=== PATIENT | female | born 1955 | race Caucasian/White ===

== ENCOUNTER 2018-08-01 22:00 | Inpatient (IN) | payer MEDICAID ==
[~2018-08-01] VITALS: Ht 165.1 cm; Wt 81.1 kg
[2018-08-01] MEDS ORDERED: SODIUM CHLORIDE FLUSH 10ML SYR IVF ONE (22:30)
[2018-08-01 22:48] LABS: BASOPHILS # (AUTO) 0.03 x10^3/uL (0-0.1); BASOPHILS % (AUTO) 0 % (0-1); EOSINOPHILS # (AUTO) 0.12 x10^3/uL (0-0.4); EOSINOPHILS % (AUTO) 2 % (1-7); LYMPHOCYTES % (AUTO) 30 % (22-44); MD NO; MEAN CORPUSCULAR HEMOGLOBIN 33.6 pg (27.5-34.5); MEAN CORPUSCULAR HGB CONC 34.3 g/dL (33.2-36.2); MEAN CORPUSCULAR VOLUME 97.9 fL (81-97); MEAN PLATELET VOLUME 7.2 fL (7.4-10.4); MONOCYTES # (AUTO) 0.66 x10^3/uL (0.2-0.8); MONOCYTES % (AUTO) 8 % (2-9); NEUTROPHILS # (AUTO) 4.68 x10^3/uL (1.8-6.8); NEUTROPHILS % (AUTO) 59 % (42-75); PLATELET COUNT 229 x10^3/uL (130-400); RED BLOOD COUNT 3.97 x10^6/uL (4.38-5.82); RED CELL DISTRIBUTION WIDTH 12.2 % (9.4-14.8)
[2018-08-01 23:05] LABS: ALBUMIN 3.6 g/dL (3.4-5.0); ANION GAP 7 mmol/L (5-15); CALCIUM 8.7 mg/dL (8.5-10.1); CHLORIDE 102 mmol/L (98-107)
[2018-08-01 23:10] LABS: ALANINE AMINOTRANSFERASE 42 U/L (12-78); ALKALINE PHOSPHATASE 68 U/L (45-117); BILIRUBIN,TOTAL 0.4 mg/dL (0.2-1.0); CREATININE 0.69 mg/dL (0.7-1.3); TOTAL PROTEIN 7.2 g/dL (6.4-8.2); TROPONIN I < 0.015 ng/mL (0.000-0.045)
[2018-08-01] MEDS ORDERED: POTASSIUM CHLORIDE 20 MEQ TAB.ER.PRT ONE (23:20)
[2018-08-01] MEDS ORDERED: POTASSIUM CHLORIDE 20 MEQ TAB.ER.PRT PO ONE (23:30)
[2018-08-02] MEDS ORDERED: POLYETHYLENE GLYCOL 17 GM PACKET PO PRN
[2018-08-02] MEDS ORDERED: DOCUSATE 100 MG CAPSULE PO PRN
[2018-08-02] MEDS ORDERED: LABETALOL 5MG/ML, 20ML IVPush PRN
[2018-08-02] MEDS ORDERED: POTASSIUM CHLORIDE 40 MEQ in SODIUM CHLORIDE 0.9% 500 ML IV ONE
[2018-08-02] MEDS ORDERED: ONDANSETRON 2MG/ML, 2ML IVPush PRN
[2018-08-02] MEDS ORDERED: morphine SULFATE 10 MG/ML, 1ML IVPush PRN
[2018-08-02] MEDS ORDERED: SODIUM CHLORIDE FLUSH 10ML SYR IVF ONE
[2018-08-02] MEDS ORDERED: SODIUM CHLORIDE 0.9% 1,000ML IVBOLUS ONE
[2018-08-02] MEDS ORDERED: BISACODYL 10 MG SUPP PR PRN
[2018-08-02] MEDS ORDERED: LORazepam 2 MG/ML, 1ML IVPush PRN (00:30)
[2018-08-02 01:03] VITALS: BP 90/58
[2018-08-02] MEDS ORDERED: POTA25TA4 PO (01:36)
[2018-08-02] MEDS ORDERED: FLUO90CA5 PO (01:36)
[2018-08-02] MEDS ORDERED: CHLO50TA PO (01:36)
[2018-08-02] MEDS ORDERED: ATEN50TA41 PO (01:36)
[2018-08-02] MEDS ORDERED: ZOLP6.252 PO (01:36)
[2018-08-02] MEDS: POTASSIUM CHLORIDE 20 MEQ, MAGNESIUM SULFATE 2 GM, THIAMINE 100 MG, MVI ADULT 10 ML, FO... IV SCH ×2 (01:59→18:43)
[2018-08-02 02:00] VITALS: BP 98/60
[2018-08-02] MEDS: POTASSIUM CHLORIDE 20 MEQ in LACTATED RINGERS 1,000 ML IV SCH ×2 (02:00→12:03)
[2018-08-02] MEDS: ENOXAPARIN 40 MG/0.4 ML SQ SCH (05:32)
[2018-08-02 06:20] LABS: TROPONIN I < 0.015 ng/mL (0.000-0.045)
[2018-08-02 08:00] VITALS: BP 106/71
[2018-08-02 08:05] LABS: BASOPHILS # (AUTO) 0.02 x10^3/uL (0-0.1); BASOPHILS % (AUTO) 0 % (0-1); EOSINOPHILS # (AUTO) 0.06 x10^3/uL (0-0.4); EOSINOPHILS % (AUTO) 1 % (1-7); LYMPHOCYTES # (AUTO) 2.32 x10^3/uL (1-3.4); LYMPHOCYTES % (AUTO) 39 % (22-44); MD NO; MEAN CORPUSCULAR HEMOGLOBIN 33.5 pg (27.0-34.8); MEAN CORPUSCULAR HGB CONC 34.7 g/dL (32.4-35.8); MEAN CORPUSCULAR VOLUME 96.5 fL (80-100); MEAN PLATELET VOLUME 7.4 fL (7.4-10.4); MONOCYTES # (AUTO) 0.48 x10^3/uL (0.2-0.8); MONOCYTES % (AUTO) 8 % (2-9); NEUTROPHILS # (AUTO) 3.13 x10^3/uL (1.8-6.8); NEUTROPHILS % (AUTO) 52 % (42-75); PLATELET COUNT 247 x10^3/uL (130-400); RED BLOOD COUNT 4.01 x10^6/uL (3.82-5.3); RED CELL DISTRIBUTION WIDTH 12.1 % (9.6-15.2)
[2018-08-02 08:07] LABS: ALBUMIN 3.5 g/dL (3.4-5.0); ANION GAP 8 mmol/L (5-15); CHLORIDE 104 mmol/L (98-107); CHOLESTEROL, TOTAL 206 mg/dL (140-239)
[2018-08-02 08:14] LABS: ALANINE AMINOTRANSFERASE 40 U/L (12-78); ALKALINE PHOSPHATASE 64 U/L (45-117); BILIRUBIN,TOTAL 0.3 mg/dL (0.2-1.0); CHOL/HDL RATIO 3.4; CREATININE 0.69 mg/dL (0.55-1.02); HDL CHOL % 29 % (28-40); HDL CHOLESTEROL (DIRECT) 60 mg/dL (40-60); LDL CHOLESTEROL,CALCULATED 121 mg/dL (54-169); TOTAL PROTEIN 7.3 g/dL (6.4-8.2); TRIGLYCERIDES 125 mg/dL (50-200); VLDL CHOLESTEROL 25 mg/dL (0-25)
[2018-08-02 11:31] LABS: TROPONIN I < 0.015 ng/mL (0.000-0.045)
[2018-08-02] MEDS: KETOROLAC 30 MG/1 ML IVPush PRN ×2 (12:02→18:42)
[2018-08-02 14:45] VITALS: BP 120/73
[2018-08-02] MEDS ORDERED: OMEP20CA14 PO (17:42)
[2018-08-02 19:29] VITALS: BP 115/58
[2018-08-02] MEDS: ZOLPIDEM 5MG TABLET PO PRN (22:04)
[2018-08-03 01:31] VITALS: BP 111/71
[2018-08-03] MEDS: POTASSIUM CHLORIDE 20 MEQ in LACTATED RINGERS 1,000 ML IV SCH ×2 (05:35→12:18)
[2018-08-03] MEDS: ENOXAPARIN 40 MG/0.4 ML SQ SCH (05:35)
[2018-08-03 06:20] LABS: CHLORIDE 108 mmol/L (98-107)
[2018-08-03 06:28] LABS: ANION GAP 10 mmol/L (5-15); CALCIUM 8.4 mg/dL (8.5-10.1); CREATININE 0.75 mg/dL (0.55-1.02)
[2018-08-03 07:47] VITALS: BP 116/74
[2018-08-03] MEDS ORDERED: CHLORTHALIDONE 25 MG TABLET PO SCH (10:30)
[2018-08-03] MEDS ORDERED: FLUOXETINE HCL 20 MG CAPSULE PO SCH (10:30)
[2018-08-03 12:40] VITALS: BP 120/76
[2018-08-03 16:13] LABS: MICROSCOPIC NOT IND
[2018-08-03 16:34] LABS: CULTURE INDICATED? NO
[2018-08-03] MEDS: SUCRALFATE 1 GM/10 ML UDC PO SCH ×2 (16:54→20:50)
[2018-08-03 16:58] LABS: CLOSTRIDIUM DIFFICILE ANTIGEN NEGATIVE; CLOSTRIDIUM DIFFICILE TOXIN NEGATIVE (Negative)
[2018-08-03] MEDS: KETOROLAC 30 MG/1 ML IVPush PRN (17:02)
[2018-08-03] MEDS: POTASSIUM CHLORIDE 20 MEQ, MAGNESIUM SULFATE 2 GM, THIAMINE 100 MG, MVI ADULT 10 ML, FO... IV SCH (17:45)
[2018-08-03 19:25] VITALS: BP 142/79
[2018-08-03] MEDS: ZOLPIDEM 5MG TABLET PO PRN (20:50)
[2018-08-04 00:54] VITALS: BP 126/75
[2018-08-04] MEDS: POTASSIUM CHLORIDE 20 MEQ in LACTATED RINGERS 1,000 ML IV SCH ×3 (03:26→14:02)
[2018-08-04] MEDS: ENOXAPARIN 40 MG/0.4 ML SQ SCH (05:25)
[2018-08-04 06:47] VITALS: BP 145/78
[2018-08-04] MEDS: ATENOLOL 50 MG TABLET PO SCH (08:52)
[2018-08-04] MEDS: SUCRALFATE 1 GM/10 ML UDC PO SCH ×4 (08:52→20:11)
[2018-08-04] MEDS: K-LYTE 25 MEQ TABLET.EFF PO SCH (08:53)
[2018-08-04 12:22] VITALS: BP 133/79
[2018-08-04] MEDS ORDERED: MAALOX/HYOSCYAMINE/LIDOCAINE 45 ML BTL PO ONE (14:00)
[2018-08-04] MEDS: PANTOPROZOLE 40MG TABLET PO SCH (14:16)
[2018-08-04] MEDS: POTASSIUM CHLORIDE 20 MEQ, MAGNESIUM SULFATE 2 GM, THIAMINE 100 MG, MVI ADULT 10 ML, FO... IV SCH (17:28)
[2018-08-04 19:26] VITALS: BP 113/72
[2018-08-04] MEDS: ZOLPIDEM 5MG TABLET PO PRN (20:11)
[2018-08-05] MEDS: KETOROLAC 30 MG/1 ML IVPush PRN (01:45)
[2018-08-05] MEDS: PANTOPROZOLE 40MG TABLET PO SCH ×2 (01:45→13:58)
[2018-08-05 01:52] VITALS: BP 116/77
[2018-08-05] MEDS: POTASSIUM CHLORIDE 20 MEQ in LACTATED RINGERS 1,000 ML IV SCH ×2 (05:02→10:55)
[2018-08-05] MEDS: ENOXAPARIN 40 MG/0.4 ML SQ SCH (05:08)
[2018-08-05 06:41] VITALS: BP 122/76
[2018-08-05] MEDS: K-LYTE 25 MEQ TABLET.EFF PO SCH (08:26)
[2018-08-05] MEDS: SUCRALFATE 1 GM/10 ML UDC PO SCH ×2 (08:26→11:00)
[2018-08-05] MEDS: ATENOLOL 50 MG TABLET PO SCH (08:26)
[2018-08-05 12:03] VITALS: BP 115/72
[2018-08-05] MEDS ORDERED: SUCR1ORA5 PO (12:32)
[2018-08-05] MEDS ORDERED: PANT40TA5 PO (12:32)
== END 2018-08-05 15:10 | disposition home or self-care (01) | DRG 440 ==
LOC: EDSEX 22:00 → ED 08-02 00:20 → EDIP 08-02 00:31 → 4WST 08-02 00:57
PROVIDERS: ADMIT Family Medicine; ATTEND Family Medicine
DX: K85.20 Alcohol induced acute pancreatitis without necrosis or infection (principal); K29.20 Alcoholic gastritis without bleeding; F10.129 Alcohol abuse with intoxication, unspecified; I11.9 Hypertensive heart disease without heart failure; E78.5 Hyperlipidemia, unspecified; E87.6 Hypokalemia; Z82.49 Family history of ischemic heart disease and other diseases of the circulatory system; Z85.3 Personal history of malignant neoplasm of breast; F32.9 Major depressive disorder, single episode, unspecified
CPT/HCPCS: 36415; 99285; J7042; 71045; 74176; 80048; 80053; 80061; 80307; 81003; 83690; 83735; 83880; 84484; 85025; 87324; 93005; G0378; J1650; J1885; J3411; J3475; J3480; J7120

== ENCOUNTER 2019-10-20 12:30 | Outpatient (CLI) | payer MEDICARE, MEDICAID ==
[~2019-10-20 12:30] MED LIST: ATEN50TA41 PO; CHLO50TA PO; FLUO90CA5 PO; OMEP20CA14 PO; PANT40TA5 PO; POTA25TA4 PO; SUCR1ORA5 PO; ZOLP6.252 PO
== END 2019-10-20 23:59 | disposition home or self-care (01) ==
LOC: LAB 12:30
PROVIDERS: ATTEND Internal Medicine
DX: J44.9 Chronic obstructive pulmonary disease, unspecified (principal)
CPT/HCPCS: 87633

== ENCOUNTER 2020-11-26 18:14 | Emergency (ER) | payer MEDICARE, MEDICAID ==
[~2020-11-26] VITALS: Ht 162.6 cm; Wt 87.4 kg
[~2020-11-26 18:14] MED LIST changes: -OMEP20CA14 PO; +OMEP20CA20 PO; -PANT40TA5 PO; +PANT40TA6 PO
[2020-11-26 18:15] VITALS: BP_DIAS 94
[2020-11-26] MEDS ORDERED: SODIUM CHLORIDE 0.9% 1,000ML IVBOLUS ONE (18:30)
[2020-11-26] MEDS ORDERED: SODIUM CHLORIDE FLUSH 10ML SYR IVF ONE (18:30)
[2020-11-26 19:00] LABS: BASOPHILS % (AUTO) 0 % (0-1); EOSINOPHILS % (AUTO) 1 % (1-7); LYMPHOCYTES % (AUTO) 17 % (22-44); MONOCYTES % (AUTO) 8 % (2-9); NEUTROPHILS % (AUTO) 74 % (42-75); PLATELET COUNT 165 x10^3/uL (130-400); RED CELL DISTRIBUTION WIDTH 12.5 % (9.6-15.2)
[2020-11-26 19:03] LABS: ALANINE AMINOTRANSFERASE 48 U/L (12-78); ALBUMIN 3.3 g/dL (3.4-5.0); ANION GAP 10 mmol/L (5-15); CALCIUM 8.6 mg/dL (8.5-10.1); CHLORIDE 101 mmol/L (98-107); CREATININE 0.73 mg/dL (0.55-1.02)
[2020-11-26 19:06] LABS: ALKALINE PHOSPHATASE 61 U/L (45-117); BILIRUBIN,TOTAL 0.4 mg/dL (0.2-1.0); TOTAL PROTEIN 8.1 g/dL (6.4-8.2)
[2020-11-26 19:12] LABS: MD NO
[2020-11-26 22:44] LABS: TROPONIN I < 0.015 ng/mL (0.000-0.045)
[2020-11-26] MEDS ORDERED: ONDANSETRON ODT 4 MG ONE (23:15)
[2020-11-26] MEDS ORDERED: MAALOX/HYOSCYAMINE/LIDOCAINE 45 ML BTL ONE (23:15)
[2020-11-26 23:28] VITALS: BP_SYST 123
--- NOTE | 2020-11-26 23:29 | NUR ---
Patient medicated and seen in triage and discharged
[2020-11-26] MEDS ORDERED: MAALOX/HYOSCYAMINE/LIDOCAINE 45 ML BTL PO ONE (23:30)
[2020-11-26] MEDS ORDERED: ONDANSETRON ODT 4 MG PO ONE (23:30)
== END 2020-11-26 23:30 | disposition home or self-care (01) ==
LOC: ED 21:37
DX: U07.1 COVID-19 (principal); J18.9 Pneumonia, unspecified organism; K52.9 Noninfective gastroenteritis and colitis, unspecified; K29.00 Acute gastritis without bleeding; R51.9 Headache, unspecified; R07.9 Chest pain, unspecified; R94.31 Abnormal electrocardiogram [ECG] [EKG]; Z85.3 Personal history of malignant neoplasm of breast
CPT/HCPCS: 36415; 71045; 80053; 83690; 84484; 85025; 93005; 99285; Q0162